=== PATIENT | female | born 1950 | race Caucasian/White ===

== ENCOUNTER → 2023-10-28 09:58 | Outpatient (REF) | payer MEDICARE, OTHER, SELFPAY | LOC: EMG 09:58 | PROVIDERS: ATTENDING PHYSICIAN Podiatrist; FAMILY PHYSICIAN Nurse Practitioner Adult Health | DX: M54.17 Radiculopathy, lumbosacral region (principal); R20.2 Paresthesia of skin; S94.22XA Injury of deep peroneal nerve at ankle and foot level, left leg, initial encounter; R20.0 Anesthesia of skin | CPT/HCPCS: 95886; 95911 ==